=== PATIENT | male | born 1970 | race Caucasian/White ===

== ENCOUNTER 2024-03-22 09:53 | Outpatient (AMB) | payer OTHER, SELFPAY ==
--- NOTE | 2024-03-22 10:28 | A.OFFVISCC_ITS ---
Vital Signs 03/22/24 10:48 Height 6 ft 0.05 in Weight 183 lb BMI 24.8 BP 130/65 Blood Pressure Location Lt brachial Position Sitting Respiration 22 H Pulse 94 Pulse Source Pulse Oximeter Pulse Oximetry (%) 97 Oxygen Delivery Method Room Air Intake Visit Reasons: Intake Allergies No Known Allergies Allergy (Verified 03/22/24 10:38) HPI HPI Intake: Details: Patient presents for evaluation and treatment of AUD full substance use history obtained by RN, and reviewed with patient Discharged form [facility] on Monday after completing alcohol withdrawal detox Stayed for 3 days Unable to stay longer due to not being eligible for PFMLA --he wanted to stay lo nger Started new job in September Since discharge, he has been at [employer] M- evening courses Overall he reports I feel great sleep much improved He states that he sought treatment as alcohol use started to impact relationship and work performance Drinking progressed over time, in particular 2-3 years ago when he was not employed and lacked structure in his day Treatment history: Was prescribed Naltrexone via [facility] Tolerated medication with no issue BH provider: Valerie Hill Review of Systems Const Reports as per HPI and Reports no additional complaints Physical Exam Vital Signs: Last Vital Signs Pulse 94 03/22/24 10:48 Resp 22 H 03/22/24 10:48 BP 130/65 03/22/24 10:48 Pulse Ox 97 03/22/24 10:48 Oxygen Delivery Method Room Air 03/22/24 10:48 BMI result Body Mass Index 24.8 Const General: cooperative, healthy appearing, well developed, alert and awake Nutritional Appearance: average body habitus Orientation/consciousness: patient oriented x3 Limitations: no limitations Neuro General: patient oriented x3 Psych Appearance: well kempt Speech and movement: Normal speech and movement present Affect: normal affect Attitude: cooperative Thought process: Normal thought process present Thought content: Normal thought content present Insight: Good insight present (Psych) Judgement: Good judgement present (Psych) Assessment & Plan Assessment & Plan (1) Alcohol use disorder, severe, dependence: Code(s): F10.20 - Alcohol dependence, uncomplicated Category: Medical Plan: * naltrexone PO ordered--patient requesting vivtrol * RENEE signed to obtain labwork from [facility] * follow up when injection is delivered Medications: New naltrexone 50 mg PO DAILY 30 tabs 0RF MAT Intake Nursing Intake Reason for visit: Interested in vivitrol Are you currently using?: No When was your last use?: Last week How much?: 6-8 beers a day What is your current relationship status?: Current PCP: Dr Block in [facility] Date of last visit: Within the year Referral Source: [facility] Details: Pt went to [facility] last week for a 72 hour detox, and is interested in vivitrol. Substance Abuse History Substance Abuse History (includes route, frequency and quantity): Alcohol and Marijuana Social History Domestic Violence concerns: Denies Children: 2 teenagers Do you have a support system?: Yes Current mode of transportation?: Drives Where are you currently residing?: [place] Details: IV Drug Use Have you ever shared needles?: No Have you ever belonged to a needle exchange program?: No Do you buy needles at a pharmacy?: No Have you ever overdosed?: No Have you ever been hospitalized for an overdose?: No Was Naloxone administered?: Not applicable Recovery History Have you had any periods of recovery?: No Have you ever had inpatient treatment for your substance abuse disorder?: Yes Have you been in an inpatient detoxification program?: Yes Have you been in an inpatient Rehab/Senior Living house?: No Have you been in an outpatient Methadone Maintenance program?: No Have you been in an outpatient Suboxone Maintenance program?: No Have you been in an AA/NA support program?: No Have you had a Recovery Support Antique Furniture Reproducer?: No Have you had Peer Support?: No Behavioral Health History Do you have a current provider? If so, who?: Dr Soria in [place] (needs a new provider) diagnosis: Anxiety and Depression History of other addictive behavior: Denies History of self harming thoughts?: No History of homicidal or suicidal intentions?: No Medical Conditions Endocarditis?: No Skin Infection: No Seizure related to withdrawal or overdose: No Head or brain injury: No Hepatitis A (if yes, have you been treated?): No Hepatitis B (if yes, have you been treated?): No Hepatitis C (if yes, have you been treated?): No HIV (if yes, have you been treated?): No TB (if yes, have you been treated?): No Other: No Legal History History of incarceration: No Currently on parole or probation: No Court mandated programs: No Pending court cases: No DCF involvement: No
--- OUTSIDE RECORDS SUMMARY | 2024-03-22 10:32 | XMS_ITS | Clinical Summary ---
Author Organization [facility] Address [address] [place] [address] Care Team Providers Care Fruit Rancher Name Role Phone No, Pcp WELDING PROCESS ENGINEER Primary Care Provider Unavailabl e Allergies No known active allergies Immunizations Name Administration Dates Next Due Afluria TIV Prefilled Syringe (9+ Years) 015 Fluarix Quadrivalent Prefilled Syringe 7 Fluzone Quadrivalent Single Dose Vial 12/04/2018 Fluzone Trivalent Prefilled Syringe (18+ months) 12/09/2017 Td 03/29/2017 Social History Tobacco Use Types Packs/Day Years Used Date Smoking Tobacco: Never Assessed Sex and Gender Information Value Date Recorded Sex Assigned at Not on file Legal Sex Male 3:01 PM EDT Gender Identity Not on file Sexual Orientation Not on file Plan of Treatment Health Maintenance Due Date Last Done Comments Colorectal Cancer: COLONOSCO PY Screening every 10 yrs (or Modifier) 1970 Depression: Screening Annual ly using PHQ-2/9 in Adults 18 yrs or above (or HM Modifier)([facility]) 1988 Hepatitis C Virus Infection in Adolescents and Adults: Screening (or Modifier) ([facility]) 1988 SDOH Screening Reminder: Annually for all adults ([facility]) 1988 Tobacco Smoking Cessation: i n Adults excluding Women: Behavioral and Pharmacotherapy Interventions ([facility]) 1988 Lipid Screening: Every 5 yrs for Men aged 35+ (or HM Modifier) ([facility]) 2006 Colorectal Cancer Screening 45 -75 Yrs (or HM Modifier) 2015 Colorectal Cancer: FLEXIBLE SIGMOIDOSCOPY Screening every 5 yrs 2015 Colorectal Cancer: Fecal Immunochemical Test (FIT) Annually [facility] 2015 Colorectal Cancer: High-sensitivity gFOBT Screening Annually [facility] 2015 Colorectal Cancer: Stool Cologuard Screening every 3 yrs 2015 Colorectal Cancer:CT Colonography Screening every 5 yrs 2015 DTaP/Tdap/Td Vaccines ([facility]) (1 - Tdap) 03/30/2017 03/29/2017 Zoster/Shingles Vaccine Seri es Screening: Adults aged 18+ yrs (or HM Modifiers)([facility]) (1 of 2) 2020 Flu Vaccination: Yearly for ages 18mos through 64 years (or Modifier)([facility]) 09/21/2023 12/09/2017, 11/19/2016, 12/06/2014 COVID-19 Vaccine Screening: Initial Series and Booster Status ([facility]) ( - 2023- season) 2023 Pneumococcal Vaccination Screening: Pts 0-19 & 19-64 yrs of age ([facility]) Aged Out No longer eligible based on patient's age to complete this topic Medical Devices Not on file Insurance [facility] Care Teams Fruit Rancher Relationship Specialty Start Date End Date No, Pcp, WELDING PROCESS ENGINEER N/A Do not use PCP - General 12/06/14
[2024-03-22 10:48] VITALS: BP 130/65; PULSE 94; RESP 22; O2SAT 97; BMI 24.8
== END 2024-03-22 10:47 | disposition home or self-care (01) ==
LOC: HO.HCC 09:53
PROVIDERS: PCP Internal Medicine; Visit Provider Nurse Practitioner Psychiatric/Mental Health
DX: F10.20 Alcohol dependence, uncomplicated (principal)
CPT/HCPCS: 99204

== ENCOUNTER → 2024-05-07 09:00 | Outpatient (BNVA) | payer OTHER, SELFPAY | PROVIDERS: PCP Internal Medicine | DX: F10.20 Alcohol dependence, uncomplicated (principal) | CPT/HCPCS: 96372; J2315 ==

== ENCOUNTER → 2024-05-07 09:00 | Outpatient (AMB) | payer OTHER, SELFPAY ==
--- NOTE | 2024-05-07 09:24 | AM.OFFVISNUR ---
Vital Signs 05/09/24 14:52 BP 130/60 Blood Pressure Location Rt brachial Position Sitting Respiration 20 Pulse 88 Pulse Source Pulse Oximeter Intake Visit Reasons: Vivitrol Injection Allergies No Known Allergies Allergy (Verified 03/22/24 10:38) Nursing Note Patient Presents for vivitrol Injection. Current Dose 380mg. Given in the LG with no noted or stated complications. this is patients first injection, he verbally understands signs and symptoms of a reaction and to call [facility] with any questions. Office Meds Vivitrol 380 mg intramuscular suspension,extended release Performing Provider: Stephanie Rodriguez CNP Performing Location: [facility] Administered by: Rebekah Sin RN on 05/09/24 14:54 Dose Route Admin Location Dispensed Lot Number Expiration Date [facility] [employer] 380 mg IM LG 380 mg [id number] 08/19/26 22192-464-89 [employer] Assessment & Plan Assessment & Plan Orders: Orders AMB Naltrexone Injection - Practice Supplied 05/07/24 F10.20 - Alcohol dependence, uncomplicated Medications: New Vivitrol ER (naltrexone microspheres) 380 mg IM ONCE 1 ea 0RF NS F10.20 - Alcohol dependence, uncomplicated Coding
[2024-05-09 14:52] VITALS: BP 130/60; PULSE 88; RESP 20
== END ==
LOC: HO.HCC 09:01
PROVIDERS: PCP Internal Medicine
DX: F10.20 Alcohol dependence, uncomplicated (principal)

== ENCOUNTER 2024-06-14 09:10 | Outpatient (AMB) | payer OTHER, SELFPAY ==
[2024-06-14 09:18] VITALS: BP 120/86; PULSE 79; O2SAT 99; BMI 24.7
--- NOTE | 2024-06-14 09:18 | AM.OFFVISNUR ---
Vital Signs 06/14/24 09:18 Height 6 ft Weight 82.554 kg BMI 24.7 BP 120/86 Blood Pressure Location Rt brachial Pulse 79 Pulse Source Pulse Oximeter Pulse Oximetry (%) 99 Intake Visit Reasons: Vivitrol Allergies No Known Allergies Allergy (Verified 06/14/24 09:22) Coding
--- OUTSIDE RECORDS SUMMARY | 2024-06-14 09:22 | XMS_ITS | Encounter Summary ---
Author Organization [facility] Address [address] [place] [address] Care Team Providers Care Systems Eng Name Role Phone Edgard Welch MD Primary Care Provider Unava ilable Cain Hernandez Unavailable Unavailable Cain Cassidy DO Primary Care Provider Carmen vailable Encounter Details Date Type Department Care Team Description 10/16/2019 [facility] Report Medical Records [address] [place] [id number] Max Barbosa Social History Tobacco Use Types Packs/Day Years Used Date Smoking Tobacco: Former Cigarettes 0.5 15 Q uit: 03/29/2012 Smokeless Tobacco: Never Alcohol Use Standard Drinks/Week Comments Yes 0 (1 standard drink = 0.6 oz pure alcohol) not every day but most days, usually 2-3 per day, sometimes more at a function , never withdrawal symtoms Sex Assigned at Date Recorded Not on file documented as of this encounter Plan of Treatment Not on file documented as of this encounter Visit Diagnoses Not on filedocumented in this encounter Care Teams Systems Eng Relationship Specialty Start Date End Date Edgard Welch MD PCP - General Internal Medicine 01/20/17 09/30/20 Cain Cassidy DO PCP - General Internal Medicine 10/01/20 Cain Hernandez 01/20/17 documented as of this encounter
--- OUTSIDE RECORDS SUMMARY | 2024-06-14 09:22 | XMS_ITS | Clinical Summary ---
Author Organization [facility] Address [address] [place] [address] Care Team Providers Care Nanotechnologist Name Role Phone No, Pcp MAGNAFLUX OPERATOR Primary Care Provider Unavailabl e Allergies No [...] Adults 18 yrs or above (or HM Modifier)([facility]) 1970 Hepatitis C Virus Infection in Adolescents and Adults: Screening (or Modifier) ([facility]) 1988 [facility] Screening Reminder: Emily strickland for all adults ([facility]) 1988 Tobacco Smoking Cessation: i n Adults excluding Women: Behavioral and Pharmacotherapy Interventions ([facility]) 1988 Lipid Screening: Every 5 yrs for Men aged 35+ (or HM Modifier) ([facility]) 2006 Colorectal Cancer Screening 45 -75 Yrs (or HM Modifier) 2015 Colorectal Cancer: FLEXIBLE SIGMOIDOSCOPY Screening every 5 yrs 2015 Colorectal Cancer: Fecal Immunochemical Test (FIT) Annually [facility] 2015 Colorectal Cancer: High-sens itivity gFOBT Screening Annually [facility] 2015 Colorectal Cancer: Stool Col oguard Screening every 3 yrs 2015 Colorectal Cancer:CT Colonog mansoor Screening every 5 yrs 2015 DTaP/Tdap/Td Vaccines ([facility]) (1 - Tdap) 03/30/2017 Pneumococcal Vaccination Scr eening: Patients 50+ yrs of age ([facility]) (1 of 1 - PCV) 2020 Zoster/Shingles Vaccine Seri es Screening: Adults aged 18+ yrs (or HM Modifiers)([facility] ) (1 of 2) 2020 COVID-19 Vaccine Screening: Initial Series and Booster Status ([facility]) (1 - 2023- season) 2023 Flu Vaccination: Yearly for ages 18mos through 64 years (or Modifier)([facility] ) 09/20/2024 12/09/2017, , 12/06/2014 Medical Devices Not on file Insurance [facility] Care Teams Nanotechnologist Relationship Specialty Start Date End Date No, Pcp, MAGNAFLUX OPERATOR N/A Do not use PCP - General 12/06/14
--- OUTSIDE RECORDS SUMMARY | 2024-06-14 09:22 | XMS_ITS | Encounter Summary ---
Author Organization [facility] Address [address] [place] [address] Care Team Providers Care Director Microbiology Name Role Phone Edgard Welch MD Primary Care Provider Unava ilable Cain Hernandez Unavailable Unavailable Cain Cassidy DO Primary Care Provider Carmen vailable Encounter Details Date Type Department Care Team Description 09/09/2019 Tripper Report Medical Records [address] [place] [id number] Manas Teresa MD Social History Tobacco Use Types Packs/Day Years [...] on filedocumented in this encounter Care Teams Director Microbiology Relationship Specialty Start Date End Date Edgard Welch MD PCP - General Internal Medicine 01/20/17 09/30/20 Cain Cassidy DO PCP - General Internal Medicine 10/01/20 Cain Hernandez 01/20/17 documented as of this encounter
--- OUTSIDE RECORDS SUMMARY | 2024-06-14 09:22 | XMS_ITS | Encounter Summary ---
[facility] Organization [facility] Address [address] [place] [address] Care Team Providers Care Piano Maker Name Role Phone Edgard Welch MD Primary Care Provider Unava ilable Cain Hernandez Unavailable Unavailable Cain Cassidy DO Primary Care Provider Carmen vailable Encounter Details Date Type Department Care Team Description 03/23/2020 [facility] Medical Records [address] [place] [id number] Max Barbosa Social History Tobacco Use Types [...] on filedocumented in this encounter Care Teams Piano Maker Relationship Specialty Start Date End Date Edgard Welch MD PCP - General Internal Medicine 01/20/17 09/30/20 Cain Cassidy DO PCP - General Internal Medicine 10/01/20 Cain Hernandez 01/20/17 documented as of this encounter
--- NOTE | 2024-06-14 10:32 | AM.OFFVISNUR ---
Vital Signs 06/14/24 09:18 Height 6 ft Weight 82.554 kg BMI 24.7 BP 120/86 Blood Pressure Location Rt brachial Pulse 79 Pulse Source Pulse Oximeter Pulse Oximetry (%) 99 Intake Visit Reasons: Vivitrol Allergies No Known Allergies Allergy (Verified 06/14/24 09:22) Nursing Note Kj presets today for his 4 week AUD follow-up visit and Vivitrol injection. Kj has just achieved 3 months of sobriety and is currently completing the [facility] IOP program. Kj reports doing great in recovery. He denies any significant cravings. 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 Kj attends AA meetings at least 3 days a week and may increase frequency as the IOP will be taking up less time. 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 He voiced some though as to when was the proper time to discontinue the Vivitrol injections was as he has 90 days of sobriety. He will discuss with the provider on during his appointment in 4 weeks. Office Meds Vivitrol 380 mg intramuscular suspension,extended release Performing Provider: Becky Murillo MD Performing Location: [facility] Administered by: Matilde Conner RN on 06/14/24 09:35 Dose Route Admin Location Dispensed Lot Number Expiration Date [facility] O[employer]icker 380 mg IM RG 380 mg [id number] 10/20/26 12578-110-22 [employer] Comments: Pt reports no issue with previous injections and tolerated injection well. Educated on signs and symptoms of infection and urged to call [facility] with any questions or concerns. Pt verbalized understanding. Follow-up appointment made in 4 weeks to meet with provider and for next injection. Results AMB 14 Panel Urine Drug Screen Urine Marijuana (THC) Negative Last Edit by Matilde Conner RN on 06/14/24 11:46 Urine Cocaine Negative Last Edit by Matilde Conner RN on 06/14/24 11:46 Urine Morphine Negative Last Edit by Matilde Conner RN on 06/14/24 11:46 Urine Methamphetamine Negative Last Edit by Matilde Conner RN on 06/14/24 11:46 Urine Amphetamine Negative Last Edit by Matilde Conner RN on 06/14/24 11:46 Urine Benzodiazepine Negative Last Edit by Matiled Conner RN on 06/14/24 11:46 Urine Barbiturates Negative Last Edit by Matilde Conner RN on 06/14/24 11:46 Urine Methadone Negative Last Edit by Matilde Conner RN on 06/14/24 11:46 Urine Buprenorphine Negative Last Edit by Matilde Conner RN on 06/14/24 11:46 Urine Tricyclic Antidepressant Negative Last Edit by Matilde Conner RN on 06/14/24 11:46 Urine MDMA Negative Last Edit by Matilde Conner RN on 06/14/24 11:46 Urine Oxycodone Negative Last Edit by Matilde Conner RN on 06/14/24 11:46 Urine Phencyclidine Negative Last Edit by Matilde Conner RN on 06/14/24 11:46 Urine Propoxyphene Negative Last Edit by Matilde Conner RN on 06/14/24 11:46 Assessment & Plan Assessment & Plan Orders: Orders AMB 14 Panel Urine Drug Screen Today F10.20 - Alcohol dependence, uncomplicated AMB Naltrexone Injection - Practice Supplied Today F10.20 - Alcohol dependence, uncomplicated Coding
--- NOTE | 2024-06-14 10:45 | AM.OFFVISNUR ---
Vital Signs 06/14/24 09:18 Height 6 ft Weight 82.554 kg BMI 24.7 BP 120/86 Blood Pressure Location Rt brachial Pulse 79 Pulse Source Pulse Oximeter Pulse Oximetry (%) 99 Intake Visit Reasons: Vivitrol Allergies No Known Allergies Allergy (Verified 06/14/24 09:22) Assessment & Plan Assessment & Plan Orders: Orders AMB 14 Panel Urine Drug Screen Today F10.20 - Alcohol dependence, uncomplicated AMB Naltrexone Injection - Practice Supplied Today F10.20 - Alcohol dependence, uncomplicated Medications: New Vivitrol ER (naltrexone microspheres) 380 mg IM ONCE 1 ea 0RF NS F10.20 - Alcohol dependence, uncomplicated Coding
== END 2024-06-14 09:55 | disposition home or self-care (01) ==
LOC: HO.HCC 09:10
PROVIDERS: PCP Internal Medicine
DX: F10.20 Alcohol dependence, uncomplicated (principal)

== ENCOUNTER → 2024-06-14 09:10 | Outpatient (BNVA) | payer OTHER, SELFPAY | PROVIDERS: PCP Internal Medicine | DX: F10.20 Alcohol dependence, uncomplicated (principal) | CPT/HCPCS: 80307; 96372; J2315 ==